=== PATIENT | male | born 1975 | race Caucasian/White ===

== ENCOUNTER 2017-05-10 02:21 | Emergency (ER) | payer BC ==
[2017-05-10 02:28] VITALS: TEMP 97.7
[2017-05-10] MEDS ORDERED: SODIUM CHLORIDE 0.9% 500 ML IV STA (02:43)
[2017-05-10] MEDS ORDERED: FAMOTIDINE 20 MG/2 ML VIAL IV STA (02:43)
[2017-05-10] MEDS ORDERED: methylPREDNISolone SOD SUCCI 125 MG/2 ML VIAL IV STA (02:43)
[2017-05-10] MEDS ORDERED: diphenhydrAMINE 50 MG/ML 1 ML VIAL IVP STA (02:43)
[2017-05-10] MEDS ORDERED: ALBUTEROL NEBULIZED 2.5 MG/3 ML INHALATION STA (02:44)
--- NOTE | 2017-05-10 02:54 | ED ---
ENT HPI - General Source: patient, RN notes reviewed, old records reviewed Mode of arrival: ambulatory Limitations: no limitations <Jovita Tenorio - Last Filed: 05/10/17 02:52> <Anshu Garcia - Last Filed: 05/10/17 04:16> - General Chief complaint: ENT Stated complaint: LOTTIE Time Seen by Provider: 05/10/17 02:31 - History of Present Illness Initial comments: This patient is a 42-year-old male presents emergency Department chief complaint of feeling like his throat was closing. He states that he woke up due to the symptoms. Patient states that he felt like it was not difficult for him to breathe. Patient relates that he did not eat anything abnormal that would be a cause for ALLERGIC reaction type picture. Patient states that he has had no previous ALLERGIES. He states he does not have a sore throat. Denies any fever or chills. Denies any dental pain. Patient denies any chest pain or shortness of breath. (Jovita Tenorio) - Related Data Previous Rx's Medication Instructions Recorded Amoxic-Pot Clav 875-125Mg 1 tab PO Q12HR #14 tablet 05/10/17 [Augmentin 875-125] Ranitidine HCl [Zantac] 150 mg PO BID #10 tab 05/10/17 predniSONE 50 mg PO DAILY #5 tablet 05/10/17 Allergies Allergy/AdvReac Type Severity Reaction Status Date / Time No Known Allergies Allergy Verified 05/10/17 02:28 Review of Systems ROS Other: All systems not noted in ROS Statement are negative. <Jovita Tenorio - Last Filed: 05/10/17 02:52> ROS Other: All systems not noted in ROS Statement are negative. <Anshu Garcia - Last Filed: 05/10/17 04:16> ROS Statement: Those systems with pertinent positive or pertinent negative responses have been documented in the HPI. Past Medical History Past Medical History: Hypertension History of Any Multi-Drug Resistant Organisms: None Reported Past Surgical History: Appendectomy, Back Surgery Past Psychological History: No Psychological Hx Reported Smoking Status: Never smoker Past Alcohol Use History: Occasional Past Drug Use History: None Reported <Jovita Tenorio - Last Filed: 05/10/17 02:52> General Exam Limitations: no limitations General appearance: alert, in no apparent distress Head exam: Present: atraumatic, normocephalic, normal inspection Eye exam: Present: normal appearance, PERRL, EOMI. Absent: scleral icterus, conjunctival injection, periorbital swelling ENT exam: Present: normal exam, mucous membranes moist, TM's normal bilaterally. Absent: normal oropharynx (Patient has an erythematous oropharynx , bilateral enlargement of the tonsils touching the uvula.) Neck exam: Present: normal inspection. Absent: tenderness, meningismus, lymphadenopathy Respiratory exam: Present: normal lung sounds bilaterally. Absent: respiratory distress, wheezes, rales, rhonchi, stridor Cardiovascular Exam: Present: regular rate, normal rhythm, normal heart sounds. Absent: systolic murmur, diastolic murmur, rubs, gallop, clicks GI/Abdominal exam: Present: soft Extremities exam: Present: normal inspection, full ROM, normal capillary refill. Absent: tenderness, pedal edema, joint swelling, calf tenderness Back exam: Present: normal inspection Neurological exam: Present: alert, oriented X3, CN II-XII intact Psychiatric exam: Present: normal affect, normal mood Skin exam: Present: warm, dry, intact, normal color. Absent: rash <Jovita Tenorio - Last Filed: 05/10/17 02:52> <Anshu Garcia - Last Filed: 05/10/17 04:16> - General Exam Comments Initial Comments: Is a 42-year-old male. Alert and oriented. No acute distress. (Jovita Tenorio ) Course <Jovita Tenorio - Last Filed: 05/10/17 02:52> <Anshu Garcia - Last Filed: 05/10/17 04:16> Vital Signs 05/10/17 05/10/17 05/10/17 02:24 03:42 03:51 Temperature 97.7 F Pulse Rate 78 80 84 Respiratory 18 Rate Blood Pressure 184/113 O2 Sat by Pulse 99 Oximetry Patient is reassessed at 4 AM, he has no difficulty no difficulty breathing he has no difficulty swallowing, labs are reviewed white count is normal reviewed the neck x-ray is consistent with the exam very is there is a inflammation in the oropharynx. Will require and give him a gram of Rocephin now may be gone home on a prednisone 50 mg 1 tablet daily for next 5 days and Augmentin twice daily for next 7 days. I suspect there is a component of ALLERGIES as well as infection and also agreed to give him some Zantac 150 mg twice daily for next 10 days and return to the ER if symptoms get worse was advised to get older Dr. Meek for the follow-up (Anshu Garcia) Medical Decision Making - Lab Data Result diagrams: 05/10/17 03:02 05/10/17 03:02 <Anshu Garcia - Last Filed: 05/10/17 04:16> - Lab Data Lab Results 05/10/17 05/10/17 05/10/17 Range/Units 03:02 03:02 03:02 WBC 7.6 (3.8-10.6) k/uL RBC 5.40 (4.30-5.90) m/uL Hgb 17.3 (13.0-17.5) gm/dL Hct 47.2 (39.0-53.0) % MCV 87.4 (80.0-100.0) fL MCH 32.0 (25.0-35.0) pg MCHC 36.6 (31.0-37.0) g/dL RDW 13.1 (11.5-15.5) % Plt Count 236 (150-450) k/uL Neutrophils % 55 % Lymphocytes % 31 % Monocytes % 5 % Eosinophils % 5 % Basophils % 1 % Neutrophils # 4.2 (1.3-7.7) k/uL Lymphocytes # 2.4 (1.0-4.8) k/uL Monocytes # 0.4 (0-1.0) k/uL Eosinophils # 0.4 (0-0.7) k/uL Basophils # 0.1 (0-0.2) k/uL Sodium 142 (137-145) mmol/L Potassium 4.1 (3.5-5.1) mmol/L Chloride 105 (98-107) mmol/L Carbon Dioxide 26 (22-30) mmol/L Anion Gap 11 mmol/L BUN 17 (9-20) mg/dL Creatinine 0.80 (0.66-1.25) mg/dL Est GFR (CKD-EPI)AfAm >90 (>60 ml/min/1.73 sqM) Est GFR (CKD-EPI)NonAf >90 (>60 ml/min/1.73 sqM) Glucose 97 (74-99) mg/dL Calcium 9.6 (8.4-10.2) mg/dL Group A Strep Rapid Negative (Negative) Disposition <Jovita Tenorio - Last Filed: 05/10/17 02:52> <Anshu Garcia - Last Filed: 05/10/17 04:16> Clinical Impression: Pharyngitis Disposition: HOME SELF-CARE Condition: Good Instructions: Tendinitis (ED) Prescriptions: Amoxic-Pot Clav 875-125Mg [Augmentin 875-125] 1 tab PO Q12HR #14 tablet predniSONE 50 mg PO DAILY #5 tablet Ranitidine HCl [Zantac] 150 mg PO BID #10 tab Referrals: Nonstaff,Physician [Primary Care Provider] - 1-2 days
[2017-05-10 03:11] LABS: Basophils # (A) 0.1 k/uL (0-0.2); Basophils % (A) 1 %; Eosinophils # (A) 0.4 k/uL (0-0.7); Eosinophils % (A) 5 %; HCT 47.2 % (39.0-53.0); HGB 17.3 gm/dL (13.0-17.5); Lymphocytes # (A) 2.4 k/uL (1.0-4.8); Lymphocytes % (A) 31 %; MCHC 36.6 g/dL (31.0-37.0); MCV 87.4 fL (80.0-100.0); Mean Platelet Volume 7.5; Monocytes # (A) 0.4 k/uL (0-1.0); Monocytes % (A) 5 %; Neutrophils # (A) 4.2 k/uL (1.3-7.7); Neutrophils % (A) 55 %; Platelet Count 236 k/uL (150-450); RDW 13.1 % (11.5-15.5); WBC 7.6 k/uL (3.8-10.6)
[2017-05-10 03:22] LABS: Anion Gap 11 mmol/L; Blood Urea Nitrogen 17 mg/dL (9-20); Calcium 9.6 mg/dL (8.4-10.2); Carbon Dioxide 26 mmol/L (22-30); Chloride 105 mmol/L (98-107); Glucose 97 mg/dL (74-99); Potassium 4.1 mmol/L (3.5-5.1); Sodium 142 mmol/L (137-145)
--- NOTE | 2017-05-10 03:31 | XR ---
PROCEDURE: FILM SOFT TISSUE NECK HISTORY: 42-year-old male with throat pain. COMPARISON: None TECHNIQUE: Frontal and lateral views of the soft tissues of the neck were obtained. FINDINGS: There is evidence of retropharyngeal thickening at the level of the oropharynx/hypopharynx. No evidence of abnormal epiglottic or subglottic thickening. Mild degenerative changes in the visualized cervical spine. IMPRESSION: Evidence of retropharyngeal thickening at the level of the oropharynx/hypopharynx.
[2017-05-10] MEDS ORDERED: cefTRIAXone IN SWFI 1,000 MG/10 ML SYRINGE IVP STA (04:03)
[2017-05-10 04:23] VITALS: BP 131/81; PULSE 86; RESP 16
== END 2017-05-10 04:23 | disposition home or self-care (01) ==
LOC: EC 02:21
DX: J02.9 Acute pharyngitis, unspecified (principal)
CPT/HCPCS: 36415; 94640; 80048; 85025; 87081; 87430; 70360; 99285; 96374; 96375 ×3; J1200; J2930; J0696